=== PATIENT | male | born 1980 | race Caucasian/White ===

== ENCOUNTER → 2019-09-01 13:00 | Outpatient (CLI) | payer BC, SELFPAY ==
--- NOTE | ~2019-09-01 | XR_ITS ---
EXAMINATION: XR chest 2V DATE: 09/01/2019 14:59 INDICATION: Smoker. TECHNIQUE: Frontal and lateral views of the chest were obtained. COMPARISON: None. FINDINGS: There is mild scarring at the lung apices. No pleural effusion or pneumothorax. The heart s ize is normal. IMPRESSION: 1. Mild scarring at the lung apices. Reviewed, dictated and finalized at location A. [facility]
== END ==
PROVIDERS: PCP Emergency Medicine; Visit Provider Emergency Medicine
DX: Z72.0 Tobacco use (principal); R91.8 Other nonspecific abnormal finding of lung field
CPT/HCPCS: 71046